=== PATIENT | female | born 1965 | race Caucasian/White ===

== ENCOUNTER → 2024-06-15 09:55 | Outpatient (REF) | payer BC, SELFPAY | LOC: RST 09:55 | PROVIDERS: ATTENDING PHYSICIAN Family Medicine | DX: R13.10 Dysphagia, unspecified (principal) | CPT/HCPCS: 74230; 92611 ==

== ENCOUNTER → 2024-09-21 10:35 | Outpatient (REF) | payer BC, SELFPAY | LOC: HWWDC 10:35 | PROVIDERS: ATTENDING PHYSICIAN Obstetrics & Gynecology Gynecology; FAMILY PHYSICIAN Family Medicine | DX: Z12.31 Encounter for screening mammogram for malignant neoplasm of breast (principal) | CPT/HCPCS: 77063; 77067 ==

== ENCOUNTER 2025-04-11 01:25 | Emergency (ER) | payer BC, SELFPAY ==
[2025-04-11 01:29] VITALS: BP 155/81
[2025-04-11 01:35] LABS: Glucose - Point of Care 118 mg/dl (70-99)
[2025-04-11 01:50] VITALS: BMI 24.4
[2025-04-11 01:57] LABS: % Basophils 0.4 % (0-2); % Eosinophils 4.6 % (0-6); % Immature Granulocytes 0.4 % (0-0.5); % Monocytes 7.1 % (1.7-9.3); % Neutrophils 50.5 % (42.2-75.2); Absolute Eosinophils 0.3 10^3/uL (0-0.7); Absolute Lymphocytes 2.5 10^3/uL (1.2-3.4); Absolute Monocytes 0.5 10^3/uL (0.1-0.6); Absolute Neutrophils 3.4 10^3/uL (1.4-6.5); Hematocrit 38.2 % (37.0-47.0); Mean Corpuscular Hgb 32.3 pg (27.0-31.0); Mean Platelet Volume 9.4 fL (7.4-10.4); Nucleated Red Blood Cells % 0 %; Platelet Count 273 10^3/uL (130-400); Red Blood Cell Count 4.02 10^6/uL (4.20-5.40); Red Cell Dist. Width 12.9 % (11.5-14.5); White Blood Cell Count 6.8 10^3/uL (4.8-10.8)
[2025-04-11] MEDS: ATIVAN 1 MG IV (02:04)
[2025-04-11 02:08] VITALS: BP 130/81
[2025-04-11 02:19] LABS: ALT (SGPT) 53 U/L (0-35); AST (SGOT) 47 U/L (14-36); Alkaline Phosphatase 55 U/L (38-126); Blood Urea Nitrogen 9 mg/dl (7-17); Calcium 8.9 mg/dl (8.4-10.2); Carbon Dioxide 23 mmol/L (22-30); Chloride 114 mmol/L (98-107); Estimated Creatinine Clearance 76 ml/min; Glucose 112 mg/dl (70-99); Potassium 4.5 mmol/L (3.5-5.1); Sodium 146 mmol/L (135-145); Total Bilirubin 0.5 mg/dl (0.2-1.3); Total Protein 7.9 g/dl (6.3-8.2); eGFR > 60.00
[2025-04-11 03:00] VITALS: BP 96/64
--- NOTE | 2025-04-11 03:25 | ED.GENMED ---
History of Present Illness
General
Chief Complaint: Weakness
Source: patient and spouse
Time Seen by Provider: 04/11/25 01:46
History of Present Illness
History of Present Illness:
This is 60-year-old female who presents after she woke up feeling nauseous. She states she then began to feel lightheaded and just did not feel right. She states her legs feel like they are jerking. She also just feels lightheaded and generally
weak. She denies any focal weakness. No speech changes. The patient does state that she had 3 glasses of wine and forgot about it did feel little intoxicated. She states that the more than she would usually drink. Patient states symptoms began
about 2 hours ago. No chest pain. She currently still feels a little generally weak and feels like her legs are just jerking uncontrollably. She admits that she is otherwise healthy. She also states that her mom had a stroke and it always
concerns her. Patient's states that she became concerned and asked him to bring her to the hospital
Past History
Past History
ED Past Medical History: Hypercholesterolemia, Psychiatric (Anxiety) and Other (Hyperthyroidism)
Social History
Tobacco: Non-smoker
Alcohol: Occasional
Drug: None
Phy Exam
Physical Exam
Physical Exam:
CONSTITUTIONAL Patient alert and oriented to person, place and time. Well-appearing. Vital signs reviewed.
HEAD atraumatic, normocephalic.
EYES eyelids normal to inspection, Extraocular muscles intact, Conjunctiva normal, Sclera normal.
NECK normal range of motion, Trachea midline, no jugular venous distention.
RESPIRATORY CHEST No respiratory distress noted, Chest expansion equal, Bilateral breath sounds clear.
CARDIOVASCULAR regular rate and rhythm, Heart sounds normal.
ABDOMEN abdomen nontender, Bowel sounds normal. No distention.
BACK normal inspection, no obvious deformities
UPPER EXTREMITY range of motion normal, Motor strength normal, no cyanosis, no edema.
LOWER EXTREMITY range of motion normal, Motor strength normal, no cyanosis, no edema.
NEURO Speech normal, No focal motor deficits, [place] coma scale 15, Memory normal, Cranial Nerves intact to screening exam. No pronator drift. Normal [id number]. Patient noted to have voluntary jerking of the legs that is clearly
distractible meaning that during her upper extremity and cranial nerve testing her legs were not jerking.
SKIN skin warm, dry, and normal in color.
Course
Orders/Labs/Results
Orders:
Orders
04/11/25 01:39
CT Head W/o Iv Contrast Urgent
Comment:
Reason For Exam: weakness
04/11/25 01:42
Complete Blood Count/With Diff Urgent
Comprehensive Metabolic Panel Urgent
04/11/25 01:46
Lorazepam [Ativan] 1 mg IV NOW STA
Ondansetron Injectable [Zofran] 4 mg IV NOW STA
04/11/25 03:28
Electrocardiogram (*1) Urgent
Reason for Study: Vertigo / Dizzy
EKG- Treatment ONCE
Abnormal Lab Results
04/11/25 04/11/25
01:33 01:42
RBC 4.02 L 10^6/uL
(4.20-5.40)
MCH 32.3 H pg
(27.0-31.0)
Sodium 146 H mmol/L
(135-145)
Chloride 114 H mmol/L
(98-107)
Glucose 112 H mg/dl
(70-99)
AST 47 H U/L
(14-36)
ALT 53 H U/L
(0-35)
POC Glucose 118 H mg/dl
(70-99)
04/11/25 01:42
04/11/25 01:42
Vital Signs
Initial and Last Documented VS:
Initial Vital Signs
Temp Pulse Resp BP Pulse Ox
96.2 F L 65 12 155/81 100
04/11/25 01:29 04/11/25 01:29 04/11/25 01:29 04/11/25 01:29 04/11/25 01:29
Last Documented Vital Signs
Temp Pulse Resp BP Pulse Ox
96.2 F L 62 13 106/71 96
04/11/25 01:29 04/11/25 04:00 04/11/25 04:00 04/11/25 04:00 04/11/25 04:00
MDM/Problems Addressed
Differential Diagnosis Includes:
Electrolyte balance, anxiety, volume depletion, CVA, alcohol intoxication
MDM/Problems Addressed:
Nausea, weakness
*Radiology
Radiology exam reviewed: radiology read reviewed
*Pulse Oximetry
Patient hypoxic: no
*Combustion Analyst Interpretation
Rate: normal
Interpretation: normal
Rhythm: sinus
*Critical Care Note
Total Time (30-74mins, 75-104mins- exclusive of procedures): Not Applicable
Data Reviewed
Source: patient and spouse
Further Testing Considered But Not Given:
Consider CTA but no suspicion for CVA
Patient Management
Escalation/DeEscalation of care consider admission/obs:
Patient appears well and is sleeping on reassessment. No further leg pain. Her neuroassessment throughout her stay has been normal. I do not suspect CVA. Labs grossly unremarkable. She is currently resting but will reassess and anticipate
discharge
Update Note
Update Note:
03 50 patient reassessed and is sleeping. No further leg jerking
ED Attending Note
-
Portions of this chart may have been created with voice recognition software.� Occasional wrong word or��sound alike� substitutions may have occurred due to the inherent limitations of voice recognition software.
Discharge Plan
Departure
Patient Disposition: Home (Routine Discharge)
Date of Disposition: 04/11/25
Time of Disposition: 04:59
Patient with high blood pressure during this ER visit?: No
Discharge Problem:
Lightheadedness, Weakness
Instructions: Generalized Weakness (DC)
Referrals:
UNKNOWN - PT DOES,NOT KNOW [Family Provider] -
Activity Restrictions/Additional Instructions:
Please see your doctor in follow-up in the next 3 to 4 days. Return immediately for fevers, chest pain, shortness of breath, weakness of any kind or any other concerns.
Interventions
Interventions:
*Risk Screen - Suicide Last Done: 04/11/25 01:29
*General Assessment Last Done: 04/11/25 01:53
*Neglect/Abuse Screening Last Done: 04/11/25 01:53
*ED- Fall Risk Assessment Last Done: 04/11/25 01:53
*ED COVID-19 Vaccine History Last Done: 04/11/25 01:53
ED- Cardiac Assessment Last Done: 04/11/25 01:48
ED- Neurological Assessment Last Done: 04/11/25 01:44
ED- Pulmonary Assessment Last Done: 04/11/25 01:48
Discharge Date and Time
Print Language: CZECH
[2025-04-11 04:00] VITALS: BP 106/71
[2025-04-11 05:00] VITALS: BP 115/76
[2025-04-11 06:00] VITALS: BP 122/76
[2025-04-11 12:12] LABS: Lyme Antibody Screen, EIA Negative (Negative)
== END 2025-04-11 06:39 | disposition home or self-care (01) ==
LOC: EMR 01:25
PROVIDERS: EMERGENCY PHYSICIAN Emergency Medicine
DX: R42 Dizziness and giddiness (principal); R53.1 Weakness; E78.00 Pure hypercholesterolemia, unspecified
CPT/HCPCS: 99284; 96374; 70450; 80053; 82962; 85025; 86618; 93005

== ENCOUNTER 2025-04-12 06:27 | Day surgery (SDC) | payer BC, SELFPAY | END 2025-04-12 10:46 | disposition home or self-care (01) | LOC: GI 06:27 | PROVIDERS: ATTENDING PHYSICIAN Internal Medicine Gastroenterology; FAMILY PHYSICIAN Family Medicine | DX: Z12.11 Encounter for screening for malignant neoplasm of colon (principal); Z86.0101 Personal history of adenomatous and serrated colon polyps; K64.8 Other hemorrhoids; K57.30 Diverticulosis of large intestine without perforation or abscess without bleeding | CPT/HCPCS: G0105 ==

== ENCOUNTER → 2025-10-04 07:31 | Outpatient (REF) | payer BC, SELFPAY | LOC: HWWDC 07:31 | PROVIDERS: ATTENDING PHYSICIAN Obstetrics & Gynecology Gynecology; FAMILY PHYSICIAN Family Medicine | DX: Z12.31 Encounter for screening mammogram for malignant neoplasm of breast (principal) | CPT/HCPCS: 77063; 77067 ==